=== PATIENT | male | born 1985 | race Two or more races ===

== ENCOUNTER 2022-05-05 16:34 | Emergency (ER) | payer BC, SELFPAY ==
--- NOTE | ~2022-05-05 | XR_ITS ---
EXAMINATION: XR CHEST CLINICAL INFORMATION: Chest pain. COMPARISON: Chest radiographs dated 09/22/2014. TECHNIQUE: Frontal view of the chest was obtained. FINDINGS: No significant abnormality is noted involving the heart, lungs, mediastinum, bony thorax or soft tissues. XR/XR chest 1V IMPRESSION: No acute cardiopulmonary process.
--- NOTE | 2022-05-05 16:35 | ECG_ITS ---
Test Reason : CHEST PAIN Blood Pressure : / mmHG Vent. Rate : 067 BPM Atrial Rate : 067 BPM P-R Int : 122 ms QRS Dur : 084 ms QT Int : 364 ms P-R-T Axes : 051 061 015 degrees QTc Int : 384 ms Normal sinus rhythm with sinus arrhythmia Normal ECG No previous ECGs available Referred By: Sarahy Cerna Electronically Signed By:Reji Brown
[2022-05-05 16:44] VITALS: BP 112/69; PULSE 74; RESP 18; TEMP 36.8; O2SAT 98; BMI 29.0
--- NOTE | 2022-05-05 16:46 | ED.CHESTPAIN ---
HPI - Chest Pain General Chief Complaint: Chest Pain <SANDEE Rahman Last Filed: 05/05/22 17:17> Stated Complaint: chest pain/ sob <SANDEE Rahman Last Filed: 05/05/22 17:17> Time Seen by Provider: 05/05/22 19:58 <SANDEE Rahman Last Filed: 05/05/22 17:17> Source: patient <SANDEE Bradley Last Filed: 05/05/22 21:58> Mode of arrival: ambulatory <SANDEE Bradley Last Filed: 05/05/22 21:58> Limitations: no limitations <SANDEE Bradley Last Filed: 05/05/22 21:58> History of Present Illness HPI narrative: This is a 37-year-old male presenting to the emergency department with discomfort underneath his left shoulder blade that radiates to the left anterior chest, he tells me he is feeling a tightness in his chest, he reports that the pain is constant, worse with deep breathing. Slight associated shortness of breath. No significant personal or family cardiac history. No history of PE, DVT, hypercoagulable disorders, hormone replacement therapy or long travel. Patient denies fevers, chills, nausea, vomiting, abdominal pain, headache, vision changes, dizziness, weakness, lower extremity swelling or pain. <SANDEE Bradley Last Filed: 05/05/22 21:58> Related Data Home Medications: Previous Rx's Medication Instructions Recorded ketorolac 10 mg tablet 10 mg PO TID PRN pain 5 days #15 05/05/22 tabs <SANDEE Rahman Last Filed: 05/05/22 17:17> Allergies/Adverse Reactions: Allergies Allergy/AdvReac Type Severity Reaction Status Date / Time No Known Allergies Allergy Unverified 11/09/19 15:34 <SANDEE Rahman Last Filed: 05/05/22 17:17> Review of Systems Review of Systems: Constitutional : No Weight loss, No Fever, No Chills, No Fatigue, No Malaise ENT/Mouth : No sore throat, No Rhinorrhea Eyes: No Eye Pain, No Swelling, No Redness Cardiovascular : + Chest Pain, + SOB, No Dyspnea on Exertion, No Orthopnea, No Edema, No Palpitations Respiratory : No Cough, No Sputum, No Wheezing Gastrointestinal : No Nausea, No Vomiting, No Diarrhea, No Constipation, No abdominal Pain, No Hematochezia, No Melena Genitourinary : No Dysuria, No Urinary Frequency, No Hematuria, Musculoskeletal : No joint pain, No Myalgias, No Joint Swelling Skin : No Skin Lesions, No rash Neuro : No Weakness, No Numbness, No Dizziness, No Headache Psych : No Anxiety/Panic, No Depression All other systems reviewed and are negative <SANDEE Bradley - Last Filed: 05/05/22 21:58> Yes all other systems are reviewed and are negative <SANDEE Bradley - Last Filed: 05/05/22 21:58> [facility] Past Medical History Attestation statement: The following information was validated with the patient. <SANDEE Bradley - Last Filed: 05/05/22 21:58> Source: old records reviewed and nursing notes reviewed <SANDEE Bradley - Last Filed: 05/05/22 21:58> Social History Social History: Social History Advance Directives: No Advance Directives Information Provided: Yes <SANDEE Rahman - Last Filed: 05/05/22 17:17> Physical Exam Vital Signs: Vital Signs: Last Vital Signs Temp 98.2 F 05/05/22 16:44 Pulse 74 05/05/22 16:44 Resp 18 05/05/22 16:44 BP 112/69 05/05/22 16:44 Pulse Ox 98 05/05/22 16:44 O2 Del Method 05/05/22 16:44 BMI result Body Mass Index 29.0 <SANDEE Rahman - Last Filed: 05/05/22 17:17> Vital Signs: Last Vital Signs Temp 98.2 F 05/05/22 16:44 Pulse 74 05/05/22 16:44 Resp 18 05/05/22 16:44 BP 112/69 05/05/22 16:44 Pulse Ox 98 05/05/22 16:44 O2 Del Method 05/05/22 16:44 BMI result Body Mass Index 29.0 vss <SANDEE Bradley - Last Filed: 05/05/22 21:58> Appearance: Alert.? Oriented X3.? No acute distress.? Head: Normocephalic, atraumatic, no step-offs or deformities Eyes: Pupils equal, round and reactive to light.? CVS: Normal heart rate and rhythm.? Pulses normal.? Respiratory: No respiratory distress.? Breath sounds normal.? Abdomen: Soft and nontender.? Skin: Skin warm and dry.? Normal skin color.? Normal skin turgor.? Extremities: No lower extremity edema.? No calf ttp, negative Radha bilaterally. 5/5 strength to bilateral upper and lower extremities Back: No midline tenderness, no C-spine tenderness, full range of motion, no CVA tenderness bilaterally Neuro: Oriented X 3.? No motor deficit.? No sensory deficit. CN 2-12 intact <SANDEE Bradley Last Filed: 05/05/22 21:58> Course Course Course Narrative: RME--37yo M w/no sig PMHx presenting to the ED complaining of chest pain worse with deep breathing and movement since 06:00. Reports associated SOB. Denies pedal edema, cigarette smoking, history of clots. Did recently travel to [place] 3 weeks ago. EKG, labs, CXR, COVID/flu ordered <SANDEE Rahman Last Filed: 05/05/22 17:17> Reevaluation(s) Reevaluation #1: CBC with no acute findings. Chemistry with no electrolyte abnormalities requiring intervention. Troponin negative, EKG nonischemic, heart score of 0, unlikely ACS. BNP within normal limits. Unlikely CHF. Chest x-ray unremarkable, no signs of pneumonia or CHF. D-dimer negative patient without significant risk factors for PE therefore low suspicion for PE. This is likely noncardiac related chest pain. Or viral illness. Will give Toradol for pain and repeat 1 more cardiac enzyme. <SANDEE Bradley Last Filed: 05/05/22 21:58> Time: 20:12 <SANDEE Bradley - Last Filed: 05/05/22 21:58> Reevaluation #2: Upon re-evaluation of patient patient tells me he feels better after shot of Toradol. Tolerated it well. Second cardiac enzyme negative. I do not suspect ACS, PE or any cardiac etiologies on this patient. Likely musculoskeletal in nature viral. Educated patient on diagnosis and treatment plan, answered all question, patient verbalizes understanding. At this time patient will be discharged home, advised to return with new or worsening symptoms. Educated on worrisome signs and symptoms and when to return. At this time I feel comfortable discharge home. <SANDEE Bradley - Last Filed: 05/05/22 21:58> Time: 21:57 <SANDEE Bradley - Last Filed: 05/05/22 21:58> Medications Administered Discontinued Medications Generic Name Dose Route Start Last Admin Trade Name Freq PRN Reason Stop Dose Admin Ketorolac Tromethamine 30 mg 05/05/22 20:07 05/05/22 21:21 Ketorolac Tromethamine 30 Mg/Ml Vial IM 05/05/22 20:08 30 mg ONCE ONE Administration <SANDEE Rahman - Last Filed: 05/05/22 17:17> Medications Administered Discontinued Medications Generic Name Dose Route Start Last Admin Trade Name Freq PRN Reason Stop Dose Admin Ketorolac Tromethamine 30 mg 05/05/22 20:07 05/05/22 21:21 Ketorolac Tromethamine 30 Mg/Ml Vial IM 05/05/22 20:08 30 mg ONCE ONE Administration <SANDEE Bradley - Last Filed: 05/05/22 21:58> Medical Decision Making Medical Decision Making MDM Narrative: 2008 37-year-old male presents with left anterior chest pain, originates from the left shoulder blade however wraps around. Constant tightness since 06:00 today. With slight associated shortness of breath. Physical exam benign. Concerns for noncardiac related chest pain, versus anxiety. Unlikely myocarditis, endocarditis, ACS, PE, CHF. Patient PERC negative. Will rule out viral illnesses Plan at this time basic labs, EKG, viral testing, x-ray <SANDEE Bradley - Last Filed: 05/05/22 21:58> Differential Diagnosis Differential Diagnoses: The differential diagnosis associated with the presentation includes <SANDEE Bradley Last Filed: 05/05/22 21:58> Concerns for noncardiac related chest pain, versus anxiety. Unlikely myocarditis, endocarditis, ACS, PE, CHF. Patient PERC negative. Will rule out viral illnesses <SANDEE Bradley - Last Filed: 05/05/22 21:58> Admission/Observation Consideration of admission/observation: Escalation of care including admission/observation considered <SANDEE Bradley - Last Filed: 05/05/22 21:58> Unlikely <SANDEE Bradley - Last Filed: 05/05/22 21:58> Lab Data MDM Lab Attestation statement: I reviewed the patient's lab results. <SANDEE Bradley - Last Filed: 05/05/22 21:58> Result Diagrams: 05/05/22 16:57 05/05/22 16:57 <SANDEE Rahman - Last Filed: 05/05/22 17:17> Labs: Lab Results 05/05/22 05/05/22 05/05/22 Range/Units 16:57 16:57 16:57 WBC 8.1 (4.8-10.8) X10*3/uL RBC 4.70 (4.60-5.80) X10*6/uL Hgb 14.2 (14.0-18.0) g/dl Hct 40.9 L (42.0-52.0) % MCV 87.0 (80.0-98.0) fL MCH 30.2 (27.0-33.0) pg MCHC 34.7 (31.0-36.0) g/dl RDW 12.8 (11.0-16.0) % Plt Count 239 (160-400) X10*3/uL MPV 9.1 L (9.4-12.4) fL Immature Gran % (Auto) 0.2 (0.0-0.4) % Neut % (Auto) 51.4 (45-73) % Lymph % (Auto) 38.6 (20-40) % [place] % (Auto) 6.6 (2-11) % Eos % (Auto) 2.0 (0-4) % Baso % (Auto) 1.2 (0-2) % Lymph # (Auto) 3.1 (1.2-4.9) X10*3/uL [place] # (Auto) 0.5 (0.1-1.2) X10*3/uL Eos # (Auto) 0.2 (0.0-0.4) X10*3/uL Baso # (Auto) 0.1 (0.0-0.2) X10*3/uL Abs Immat Gran (auto) 0.02 (0.00-0.03) X10*3/uL Absolute Neuts (auto) 4.2 (2.0-8.3) x10*3/uL Absolute Nucleated RBC 0.000 (0.0-0.012) X10*3/uL Nucleated RBC % (auto) 0.0 (0.0-0.2) /100WBC D-Dimer High Sensitivty < 150 NG/ML Sodium 142 (135-145) mmol/L Potassium 4.5 (3.3-5.1) mmol/L Chloride 105 (96-108) mmol/L Carbon Dioxide 29 (22-29) mmol/L Anion Gap 13 (12-20) BUN 14 (9-16) mg/dL Creatinine 1.17 (0.5-1.4) mg/dL Estim Creat Clear Calc 89.5 Estimated GFR > 60 Random Glucose 92 (60-115) mg/dL Calcium 9.1 (8.4-10.2) mg/dL Total Bilirubin 0.4 (0.0-1.0) mg/dL Direct Bilirubin < 0.2 (0.0-0.5) mg/dL AST 19 (5-37) U/L ALT 27 (0-40) U/L Alkaline Phosphatase 68 (39-117) U/L Troponin I High Sens (<3.5-35.0) ng/L B-Natriuretic Peptide (<100) pg/mL Total Protein 6.8 (6.5-8.0) g/dL Albumin 4.2 (3.5-5.0) g/dL COVID-19 (RAS) (Negative) COVID-19 Clin Com Influenza Type A (TONY) (Negative) Influenza Type B (TONY) (Negative) Influenza A & B Note 05/05/22 05/05/22 05/05/22 Range/Units 16:57 16:57 20:22 WBC (4.8-10.8) X10*3/uL RBC (4.60-5.80) X10*6/uL Hgb (14.0-18.0) g/dl Hct (42.0-52.0) % MCV (80.0-98.0) fL MCH (27.0-33.0) pg MCHC (31.0-36.0) g/dl RDW (11.0-16.0) % Plt Count (160-400) X10*3/uL MPV (9.4-12.4) fL Immature Gran % (Auto) (0.0-0.4) % Neut % (Auto) (45-73) % Lymph % (Auto) (20-40) % [place] % (Auto) (2-11) % Eos % (Auto) (0-4) % Baso % (Auto) (0-2) % Lymph # (Auto) (1.2-4.9) X10*3/uL [place] # (Auto) (0.1-1.2) X10*3/uL Eos # (Auto) (0.0-0.4) X10*3/uL Baso # (Auto) (0.0-0.2) X10*3/uL Abs Immat Gran (auto) (0.00-0.03) X10*3/uL Absolute Neuts (auto) (2.0-8.3) x10*3/uL Absolute Nucleated RBC (0.0-0.012) X10*3/uL Nucleated RBC % (auto) (0.0-0.2) /100WBC D-Dimer High Sensitivty NG/ML Sodium (135-145) mmol/L Potassium (3.3-5.1) mmol/L Chloride (96-108) mmol/L Carbon Dioxide (22-29) mmol/L Anion Gap (12-20) BUN (9-16) mg/dL Creatinine (0.5-1.4) mg/dL Estim Creat Clear Calc Estimated GFR Random Glucose (60-115) mg/dL Calcium (8.4-10.2) mg/dL Total Bilirubin (0.0-1.0) mg/dL Direct Bilirubin (0.0-0.5) mg/dL AST (5-37) U/L ALT (0-40) U/L Alkaline Phosphatase (39-117) U/L Troponin I High Sens < 3.5 (<3.5-35.0) ng/L B-Natriuretic Peptide < 10 (<100) pg/mL Total Protein (6.5-8.0) g/dL Albumin (3.5-5.0) g/dL COVID-19 (RAS) (Negative) COVID-19 Clin Com Influenza Type A (TONY) Negative (Negative) Influenza Type B (TONY) Negative (Negative) Influenza A & B Note See Note 05/05/22 05/05/22 Range/Units 20:22 20:22 WBC (4.8-10.8) X10*3/uL RBC (4.60-5.80) X10*6/uL Hgb (14.0-18.0) g/dl Hct (42.0-52.0) % MCV (80.0-98.0) fL MCH (27.0-33.0) pg MCHC (31.0-36.0) g/dl RDW (11.0-16.0) % Plt Count (160-400) X10*3/uL MPV (9.4-12.4) fL Immature Gran % (Auto) (0.0-0.4) % Neut % (Auto) (45-73) % Lymph % (Auto) (20-40) % [place] % (Auto) (2-11) % Eos % (Auto) (0-4) % Baso % (Auto) (0-2) % Lymph # (Auto) (1.2-4.9) X10*3/uL [place] # (Auto) (0.1-1.2) X10*3/uL Eos # (Auto) (0.0-0.4) X10*3/uL Baso # (Auto) (0.0-0.2) X10*3/uL Abs Immat Gran (auto) (0.00-0.03) X10*3/uL Absolute Neuts (auto) (2.0-8.3) x10*3/uL Absolute Nucleated RBC (0.0-0.012) X10*3/uL Nucleated RBC % (auto) (0.0-0.2) /100WBC D-Dimer High Sensitivty NG/ML Sodium (135-145) mmol/L Potassium (3.3-5.1) mmol/L Chloride (96-108) mmol/L Carbon Dioxide (22-29) mmol/L Anion Gap (12-20) BUN (9-16) mg/dL Creatinine (0.5-1.4) mg/dL Estim Creat Clear Calc Estimated GFR Random Glucose (60-115) mg/dL Calcium (8.4-10.2) mg/dL Total Bilirubin (0.0-1.0) mg/dL Direct Bilirubin (0.0-0.5) mg/dL AST (5-37) U/L ALT (0-40) U/L Alkaline Phosphatase (39-117) U/L Troponin I High Sens < 3.5 (<3.5-35.0) ng/L B-Natriuretic Peptide (<100) pg/mL Total Protein (6.5-8.0) g/dL Albumin (3.5-5.0) g/dL COVID-19 (RAS) Negative (Negative) COVID-19 Clin Com See Note Influenza Type A (TONY) (Negative) Influenza Type B (TONY) (Negative) Influenza A & B Note <SANDEE Rahman - Last Filed: 05/05/22 17:17> Lab Results 05/05/22 05/05/22 05/05/22 Range/Units 16:57 16:57 16:57 WBC 8.1 (4.8-10.8) X10*3/uL RBC 4.70 (4.60-5.80) X10*6/uL Hgb 14.2 (14.0-18.0) g/dl Hct 40.9 L (42.0-52.0) % MCV 87.0 (80.0-98.0) fL MCH 30.2 (27.0-33.0) pg MCHC 34.7 (31.0-36.0) g/dl RDW 12.8 (11.0-16.0) % Plt Count 239 (160-400) X10*3/uL MPV 9.1 L (9.4-12.4) fL Immature Gran % (Auto) 0.2 (0.0-0.4) % Neut % (Auto) 51.4 (45-73) % Lymph % (Auto) 38.6 (20-40) % [place] % (Auto) 6.6 (2-11) % Eos % (Auto) 2.0 (0-4) % Baso % (Auto) 1.2 (0-2) % Lymph # (Auto) 3.1 (1.2-4.9) X10*3/uL [place] # (Auto) 0.5 (0.1-1.2) X10*3/uL Eos # (Auto) 0.2 (0.0-0.4) X10*3/uL Baso # (Auto) 0.1 (0.0-0.2) X10*3/uL Abs Immat Gran (auto) 0.02 (0.00-0.03) X10*3/uL Absolute Neuts (auto) 4.2 (2.0-8.3) x10*3/uL Absolute Nucleated RBC 0.000 (0.0-0.012) X10*3/uL Nucleated RBC % (auto) 0.0 (0.0-0.2) /100WBC D-Dimer High Sensitivty < 150 NG/ML Sodium 142 (135-145) mmol/L Potassium 4.5 (3.3-5.1) mmol/L Chloride 105 (96-108) mmol/L Carbon Dioxide 29 (22-29) mmol/L Anion Gap 13 (12-20) BUN 14 (9-16) mg/dL Creatinine 1.17 (0.5-1.4) mg/dL Estim Creat Clear Calc 89.5 Estimated GFR > 60 Random Glucose 92 (60-115) mg/dL Calcium 9.1 (8.4-10.2) mg/dL Total Bilirubin 0.4 (0.0-1.0) mg/dL Direct Bilirubin < 0.2 (0.0-0.5) mg/dL AST 19 (5-37) U/L ALT 27 (0-40) U/L Alkaline Phosphatase 68 (39-117) U/L Troponin I High Sens (<3.5-35.0) ng/L B-Natriuretic Peptide (<100) pg/mL Total Protein 6.8 (6.5-8.0) g/dL Albumin 4.2 (3.5-5.0) g/dL COVID-19 (RAS) (Negative) COVID-19 Clin Com Influenza Type A (TONY) (Negative) Influenza Type B (TONY) (Negative) Influenza A & B Note 05/05/22 05/05/22 05/05/22 Range/Units 16:57 16:57 20:22 WBC (4.8-10.8) X10*3/uL RBC (4.60-5.80) X10*6/uL Hgb (14.0-18.0) g/dl Hct (42.0-52.0) % MCV (80.0-98.0) fL MCH (27.0-33.0) pg MCHC (31.0-36.0) g/dl RDW (11.0-16.0) % Plt Count (160-400) X10*3/uL MPV (9.4-12.4) fL Immature Gran % (Auto) (0.0-0.4) % Neut % (Auto) (45-73) % Lymph % (Auto) (20-40) % [place] % (Auto) (2-11) % Eos % (Auto) (0-4) % Baso % (Auto) (0-2) % Lymph # (Auto) (1.2-4.9) X10*3/uL [place] # (Auto) (0.1-1.2) X10*3/uL Eos # (Auto) (0.0-0.4) X10*3/uL Baso # (Auto) (0.0-0.2) X10*3/uL Abs Immat Gran (auto) (0.00-0.03) X10*3/uL Absolute Neuts (auto) (2.0-8.3) x10*3/uL Absolute Nucleated RBC (0.0-0.012) X10*3/uL Nucleated RBC % (auto) (0.0-0.2) /100WBC D-Dimer High Sensitivty NG/ML Sodium (135-145) mmol/L Potassium (3.3-5.1) mmol/L Chloride (96-108) mmol/L Carbon Dioxide (22-29) mmol/L Anion Gap (12-20) BUN (9-16) mg/dL Creatinine (0.5-1.4) mg/dL Estim Creat Clear Calc Estimated GFR Random Glucose (60-115) mg/dL Calcium (8.4-10.2) mg/dL Total Bilirubin (0.0-1.0) mg/dL Direct Bilirubin (0.0-0.5) mg/dL AST (5-37) U/L ALT (0-40) U/L Alkaline Phosphatase (39-117) U/L Troponin I High Sens < 3.5 (<3.5-35.0) ng/L B-Natriuretic Peptide < 10 (<100) pg/mL Total Protein (6.5-8.0) g/dL Albumin (3.5-5.0) g/dL COVID-19 (RAS) (Negative) COVID-19 Clin Com Influenza Type A (TONY) Negative (Negative) Influenza Type B (TONY) Negative (Negative) Influenza A & B Note See Note 05/05/22 05/05/22 Range/Units 20:22 20:22 WBC (4.8-10.8) X10*3/uL RBC (4.60-5.80) X10*6/uL Hgb (14.0-18.0) g/dl Hct (42.0-52.0) % MCV (80.0-98.0) fL MCH (27.0-33.0) pg MCHC (31.0-36.0) g/dl RDW (11.0-16.0) % Plt Count (160-400) X10*3/uL MPV (9.4-12.4) fL Immature Gran % (Auto) (0.0-0.4) % Neut % (Auto) (45-73) % Lymph % (Auto) (20-40) % [place] % (Auto) (2-11) % Eos % (Auto) (0-4) % Baso % (Auto) (0-2) % Lymph # (Auto) (1.2-4.9) X10*3/uL [place] # (Auto) (0.1-1.2) X10*3/uL Eos # (Auto) (0.0-0.4) X10*3/uL Baso # (Auto) (0.0-0.2) X10*3/uL Abs Immat Gran (auto) (0.00-0.03) X10*3/uL Absolute Neuts (auto) (2.0-8.3) x10*3/uL Absolute Nucleated RBC (0.0-0.012) X10*3/uL Nucleated RBC % (auto) (0.0-0.2) /100WBC D-Dimer High Sensitivty NG/ML Sodium (135-145) mmol/L Potassium (3.3-5.1) mmol/L Chloride (96-108) mmol/L Carbon Dioxide (22-29) mmol/L Anion Gap (12-20) BUN (9-16) mg/dL Creatinine (0.5-1.4) mg/dL Estim Creat Clear Calc Estimated GFR Random Glucose (60-115) mg/dL Calcium (8.4-10.2) mg/dL Total Bilirubin (0.0-1.0) mg/dL Direct Bilirubin (0.0-0.5) mg/dL AST (5-37) U/L ALT (0-40) U/L Alkaline Phosphatase (39-117) U/L Troponin I High Sens < 3.5 (<3.5-35.0) ng/L B-Natriuretic Peptide (<100) pg/mL Total Protein (6.5-8.0) g/dL Albumin (3.5-5.0) g/dL COVID-19 (RAS) Negative (Negative) COVID-19 Clin Com See Note Influenza Type A (TONY) (Negative) Influenza Type B (TONY) (Negative) Influenza A & B Note <SANDEE Bradley - Last Filed: 05/05/22 21:58> Independent Interpretation I performed an independent interpretation of an: EKG (Ventricular rate of 67, IN normal, QRS normal, QT/QTC normal. EKG with normal sinus rhythm with sinus arrhythmia. No ST elevations or inversions concerning for ischemia) and Plain X-Ray (XR/XR chest 1V IMPRESSION: No acute cardiopulmonary process.) <SANDEE Bradley - Last Filed: 05/05/22 21:58> Radiology Impression Discussion of test interpretation with radiology: I have reviewed the radiologist's reading. <SANDEE Bradley - Last Filed: 05/05/22 21:58> Core Measures AMI core measures followed: Yes <SANDEE Bradley Last Filed: 05/05/22 21:58> Measure exclusions: not indicated <SANDEE Bradley - Last Filed: 05/05/22 21:58> Critical Care Time Critical Care Time Critical Care Time: No <SANDEE Bradley Last Filed: 05/05/22 21:58> Discharge Plan Discharge Clinical Impression: Chest pain <SANDEE Rahman Last Filed: 05/05/22 17:17> Patient Disposition: Home, Self-Care <SANDEE Rahman Last Filed: 05/05/22 17:17> Instructions: Chest Pain (DC) <SANDEE Rahman Last Filed: 05/05/22 17:17> Additional Instructions: Take your medications as prescribed. If you were prescribed antibiotics today, it is important that you take your medication to their entirety, do not skip any doses, do not finish them early. Follow-up with your primary care provider this week. Follow up with cardiology if pain persists. Return to the emergency department with new or worsening symptoms. Such as fevers, chills, chest pain, shortness of breath, nausea, vomiting, dizziness, headache, vision changes, lethargy In case of emergency call 911 Toradol has been sent to your pharmacy, you tolerated this well in the department. Please take this as prescribed do not take this with ibuprofen, or other NSAIDs, do not mix this with alcohol. Side effects of this medication including increased risk for bleeding and possible kidney injury. <SANDEE Rahman Last Filed: 05/05/22 17:17> Prescriptions: New ketorolac 10 mg tablet 10 mg PO TID PRN (Reason: pain) 5 Days Qty: 15 0RF <SANDEE Rahman Last Filed: 05/05/22 17:17> [place]: [facility] [place]] - 1 week Physician,Unknown J [Primary Care Provider] - 2 days <SANDEE Rahman Last Filed: 05/05/22 17:17> Stand Alone Forms: Work/School Release <SANDEE Rahman Last Filed: 05/05/22 17:17>
[2022-05-05 17:14] LABS: MANUAL DIFF FLAG NO
[2022-05-05 17:16] LABS: Basophils Absolute Auto 0.1 X10*3/uL (0.0-0.2); Basophils Percent Auto 1.2 % (0-2); Eosinophils Absolute Auto 0.2 X10*3/uL (0.0-0.4); Hematocrit 40.9 % (42.0-52.0); Hemoglobin 14.2 g/dl (14.0-18.0); Imm Gran Abs Auto 0.02 X10*3/uL (0.00-0.03); Imm Gran Pct Auto 0.2 % (0.0-0.4); Lymphocytes Absolute Auto 3.1 X10*3/uL (1.2-4.9); Lymphocytes Percent Auto 38.6 % (20-40); Mean Corpuscular HGB Conc 34.7 g/dl (31.0-36.0); Mean Corpuscular Hemoglobin 30.2 pg (27.0-33.0); Mean Platelet Volume 9.1 fL (9.4-12.4); Monocytes Absolute Auto 0.5 X10*3/uL (0.1-1.2); Monocytes Percent Auto 6.6 % (2-11); Neutrophils Absolute Auto 4.2 x10*3/uL (2.0-8.3); Neutrophils Percent Auto 51.4 % (45-73); Platelet Count 239 X10*3/uL (160-400); Red Cell Distribution Width 12.8 % (11.0-16.0); White Blood Count 8.1 X10*3/uL (4.8-10.8)
[2022-05-05 17:23] LABS: D Dimer High Sensitivity < 150 NG/ML
[2022-05-05 17:33] LABS: Alanine Aminotransferase 27 U/L (0-40); Albumin Level 4.2 g/dL (3.5-5.0); Alkaline Phosphatase 68 U/L (39-117); Anion Gap 13 (12-20); Aspartate Amino Transferase 19 U/L (5-37); Bilirubin Direct < 0.2 mg/dL (0.0-0.5); Bilirubin Total 0.4 mg/dL (0.0-1.0); Blood Urea Nitrogen 14 mg/dL (9-16); Calcium 9.1 mg/dL (8.4-10.2); Carbon Dioxide 29 mmol/L (22-29); Chloride 105 mmol/L (96-108); Creatinine Clr Calc Pharmacy 89.5; Estimated Glomerular Filt Rate > 60; Glucose Random 92 mg/dL (60-115); Potassium 4.5 mmol/L (3.3-5.1); Sodium 142 mmol/L (135-145); Total Protein 6.8 g/dL (6.5-8.0)
[2022-05-05 17:35] LABS: B Type Natriuretic Peptide < 10 pg/mL (<100)
[2022-05-05 17:39] LABS: Troponin-I High Sensitivity < 3.5 ng/L (<3.5-35.0)
[2022-05-05 20:41] LABS: COVID-19 Test Negative (Negative); IDNOW Serial# 16C4AD1C
[2022-05-05 20:43] LABS: IDNOW Serial# BCCEAD1C; Influenza A Negative (Negative); Influenza B2 Negative (Negative)
[2022-05-05 20:47] LABS: Troponin-I High Sensitivity < 3.5 ng/L (<3.5-35.0)
[2022-05-05] MEDS: Ketorolac Tromethamine 30 MG/ML VIAL IM (21:21)
== END 2022-05-05 22:13 | disposition home or self-care (01) ==
PROVIDERS: Physician Assistant; Emergency Provider Internal Medicine
DX: R07.9 Chest pain, unspecified (principal); R06.02 Shortness of breath; Z20.822 Contact with and (suspected) exposure to COVID-19
CPT/HCPCS: 36415; 71045; 80048; 80076; 83880; 84484; 85025; 85379; 87502; 87635; 93005; 96372; 99284; J1885

== ENCOUNTER 2023-11-04 20:30 | Emergency (ER) | payer BC, SELFPAY ==
--- NOTE | ~2023-11-04 | XR_ITS ---
EXAMINATION: XR SHOULDER, RIGHT CLINICAL INFORMATION: Chronic shoulder pain COMPARISON: None available. TECHNIQUE: AP external rotation, Grashey, scapular Y, and axillary views of the right shoulder. FINDINGS: The bones and soft tissues are normal. No fracture. Glenohumeral and acromioclavicular alignment is anatomic with normal joint space. No abnormal soft tissue calcifications. XR/XR shoulder RT min 2V IMPRESSION: Normal right shoulder. Electronically signed by: Tomas Sanchez DO 11/04/2023 11:52 PM EDT
--- NOTE | ~2023-11-04 | XR_ITS ---
EXAMINATION: XR FOREARM, RIGHT CLINICAL INFORMATION: Pain COMPARISON: None available. TECHNIQUE: AP and lateral views of the right forearm were obtained. FINDINGS: The bones and soft tissues are normal. No fracture. Imaged portions of the elbow and wrist are unremarkable. XR/XR forearm RT 2V IMPRESSION: Normal right forearm. Electronically signed by: Destiny Jacobo MD 11/04/2023 11:48 PM EDT RP
[2023-11-04 20:42] VITALS: BP 132/82; PULSE 89; RESP 18; TEMP 38.9; O2SAT 98; BMI 27.8
--- NOTE | 2023-11-04 20:47 | ED.GENADULT ---
HPI - General Adult General Chief complaint: General Medical Stated complaint: chills/sore throat/rt arm falls alseep Source: patient Mode of arrival: ambulatory Limitations: no limitations History of Present Illness HPI narrative: Patient left before completion of treatment by ED provider Related Data Previous Rx's ?Medication ?Instructions ?Recorded ketorolac 10 mg tablet 10 mg PO TID PRN pain 5 days #15 05/05/22 tabs Allergies Allergy/AdvReac Type Severity Reaction Status Date / Time No Known Allergies Allergy Verified 11/04/23 20:44 [facility] Social History Social History Advance Directives: No Advance Directives Information Provided: No Do you have a plan to hurt others: No Plan Physical Exam ED Vital Signs: Vital Signs - 24 hr 11/04/23 20:42 Temperature 102.0 F H Pulse Rate 89 Respiratory Rate 18 Blood Pressure 132/82 Pulse Oximetry 98 Oxygen Delivery Method Room Air BMI result Body Mass Index 27.8 Course Course Course Narrative: RME: DOne by SANDEE Anderson. 38-year-old male presents to ED for fever, sore throat, and chills the past 3 days. Patient states was sick 1st and now he is sick. Patient denies any chest pain or shortness of breath. Secondary complaint is right shoulder pain read the dragging down right arm for almost a year. Patient states sharp stabbing tingling pain going down right arm and pain on range of motion. Physical exam negative for signs of neurovascular compromise of right upper extremity. Negative for signs of DVT, compartment syndrome, arterial occlusion. Oral exam negative for signs of peritonsillar abscess. SARs strep x-ray ordered Medications Administered Discontinued Medications Generic Name Dose Route Start Last Admin Trade Name Freq PRN Reason Stop Dose Admin Acetaminophen 975 mg 11/04/23 20:47 11/04/23 20:52 Acetaminophen 325 Mg Tablet PO 11/04/23 20:48 975 mg ONCE ONE Administration Ibuprofen 400 mg 11/04/23 20:47 11/04/23 20:52 Ibuprofen 400 Mg Tablet PO 11/04/23 20:48 400 mg ONCE ONE Administration Medical Decision Making Lab Data Labs: Lab Results 11/04/23 Range/Units 20:56 Influenza Type A (PCR) NEGATIVE (Negative) Influenza Type B (PCR) NEGATIVE (Negative) RSV RNA Qual (PCR) NEGATIVE (Negative) SARS-CoV-2 RNA (RT-PCR) NEGATIVE (Negative) S. pyogenes GrpA TONY Negative (Negative) Discharge Plan Discharge Clinical Impression: Acute viral syndrome Patient Disposition: Left W/O Completing Treatment Prescriptions: No Action ketorolac 10 mg tablet 10 mg PO TID PRN (Reason: pain) 5 Days Qty: 15 0RF Discharge Date/Time: 11/04/23 23:50
[2023-11-04] MEDS: Ibuprofen 400 MG TABLET PO (20:52)
[2023-11-04] MEDS: Acetaminophen 325 MG TABLET 975 MG PO (20:52)
[2023-11-04 21:22] LABS: IDNOW Serial# 6674DD1D; Strep A Nucleic Acid Negative (Negative)
[2023-11-04 21:52] LABS: Influenza A PCR NEGATIVE (Negative); Influenza B PCR NEGATIVE (Negative); Resp Syncy Virus RNA Qual PCR NEGATIVE (Negative); SARS COV2 PCR INHOUSE NEGATIVE (Negative)
== END 2023-11-04 23:50 | disposition left against medical advice (07) ==
PROVIDERS: Physician Assistant; Emergency Provider Emergency Medicine
DX: B34.9 Viral infection, unspecified (principal); J02.8 Acute pharyngitis due to other specified organisms; M79.601 Pain in right arm; Z03.818 Encounter for observation for suspected exposure to other biological agents ruled out
CPT/HCPCS: 0241U; 73030; 73090; 87651; 99282; 99283

== ENCOUNTER 2024-04-25 15:08 | Outpatient (AMB) | payer BC, SELFPAY ==
[2024-04-25 15:18] VITALS: BP 110/70; PULSE 86; TEMP 36.3; O2SAT 98; BMI 28.2
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
== END 2024-04-25 16:02 | disposition home or self-care (01) ==
PROVIDERS: Visit Provider Physician Assistant
DX: Z23 Encounter for immunization (principal)

== ENCOUNTER → 2024-04-25 15:08 | Outpatient (BNVA) | payer BC, SELFPAY | PROVIDERS: Visit Provider Physician Assistant | DX: M79.671 Pain in right foot (principal); M79.672 Pain in left foot; R07.1 Chest pain on breathing; K21.9 Gastro-esophageal reflux disease without esophagitis; M54.6 Pain in thoracic spine; M54.2 Cervicalgia; M77.8 Other enthesopathies, not elsewhere classified; Z28.21 Immunization not carried out because of patient refusal | CPT/HCPCS: 90471; 96127 ==

== ENCOUNTER 2024-04-27 20:09 | Emergency (ER) | payer BC, SELFPAY ==
--- NOTE | ~2024-04-27 | CT_ITS ---
CLINICAL HISTORY: head trauma CT head without contrast Comparison: None Findings: No acute intracranial hemorrhage. No midline shift or hydrocephalus. Vee matter-white matter differentiation is adequate. Posterior fossa arachnoid cyst measures 9 mm. Soft tissue swelling and/or scar over the frontal convexities. Acute comminuted nasal bone fractures with anterior blunting. Mucosal thickening of the imaged paranasal sinuses. Trace left mastoid effusion. Soft tissue swelling over the frontal convexities IMPRESSION: 1. No acute intracranial abnormality by CT. 2. Acute comminuted anterior bilateral nasal bone fractures. This document has been electronically signed by: Woodrow Moise MD on 04/27/2024 21:22:01
--- NOTE | ~2024-04-27 | CT_ITS ---
CLINICAL HISTORY: laceration, TTP CT maxillofacial without contrast Comparison: Head CT from same day. Findings: Acute comminuted bilateral nasal bone fractures with anterior blunting. Nasal septum deviates to the left. Mucosal thickening and retention cysts of the paranasal sinuses including 2 cm in the left maxillary sinus, with likely odontogenic origin. Trace left mastoid effusion. Soft tissue swelling including over the frontal convexities with small dermal calcifications. Minimal periorbital soft tissue swelling is preseptal. No displaced mandible fracture. No dislocation of the temporomandibular joints. Mild reversal of the imaged cervical lordosis. IMPRESSION: Acute comminuted anterior bilateral nasal bone fractures. This document has been electronically signed by: Woodrow Moise MD on 04/27/2024 21:23:25
[2024-04-27 20:15] VITALS: BP 110/76; PULSE 110; RESP 20; TEMP 37; O2SAT 98; BMI 22.8
--- NOTE | 2024-04-27 20:19 | ED_ITS ---
HPI - Skin/Abscess/Foreign Bdy General Chief complaint: Wound/Laceration Stated complaint: nose laceration Time Seen by Provider: 04/27/24 23:17 Source: patient Mode of arrival: ambulatory Limitations: no limitations History of Present Illness ED Provider: BAHMAN HANLEY narrative: 39 yo male with PMH of GERD not on thinners he is unclear on Tdap but refuses. He comes in with c/o taking an elbow to bridge of nose causing cut while playing pepper picker basketball. He had no LOC. His nose did not bleed. He has mild headache. MD complaint: laceration Onset (ago): minute(s) ([employer]IVIL [employer]INE[employer]) Tetanus up to date: unsure Location: face (nose) Severity: mild Quality: aching Pain Consistency: constant Relieving factors: none Exacerbating factors: none Context: other (elbow to the face) Associated symptoms: denies other symptoms Treatments prior to arrival: none Related Data Previous Rx's ?Medication ?Instructions ?Recorded omeprazole 10 mg capsule,delayed 10 mg PO DAILY 30 days #30 caps 04/26/24 release amoxicillin 500 mg capsule 500 mg PO BID 7 days #14 caps 04/27/24 Allergies Allergy/AdvReac Type Severity Reaction Status Date / Time No Known Allergies Allergy Verified 04/27/24 20:19 Review of Systems Review of Systems: Constitutional : No Fever, No Chills, No Fatigue ENT/Mouth : No sore throat, No Rhinorrhea Eyes: No Eye Pain, No Swelling, No Redness Cardiovascular : No Chest Pain, No SOB, No Dyspnea on Exertion Respiratory : No Cough, No Sputum Gastrointestinal : No Nausea, No Vomiting, No Diarrhea, No abdominal Pain Genitourinary : No Dysuria, No Urinary Frequency, No Hematuria, Musculoskeletal : No joint pain, No Myalgias, No Joint Swelling Skin : No Skin Lesions, No rash, pos skin laceration Neuro : No Weakness, No Numbness, No Dizziness, positive Headache All other systems reviewed and are negative [facility] Past Medical History Attestation statement: The following information was validated with the patient. Source: old records reviewed Medical History (Updated 04/28/24 @ 00:00 by Faby Koch DO) GERD (gastroesophageal reflux disease) Family History Family History (Updated 04/25/24 @ 15:29 by Heber Crockett PA-C) Mother DMII (diabetes mellitus, type 2) Father Liver cirrhosis Social History Social History Alcohol intake: current Alcohol intake frequency: holidays/special occasions on ly Substance Use Type: Marijuana Current occupational status: employed Current occupation: [employer] Physical Exam Vital Signs: Vital Signs: Last Vital Signs Temp 98.6 F 04/27/24 20:15 Pulse 110 H 04/27/24 20:15 Resp 20 04/27/24 20:15 BP 110/76 04/27/24 20:15 Pulse Ox 98 04/27/24 20:15 O2 Del Method Room Air 04/27/24 20:15 BMI result Body Mass Index 22.8 Appearance: Alert. Oriented X3. No acute distress. Eyes: Pupils equal, round and reactive to light. ENT: Pharynx normal. no nasal septal hematoma - nasal bridge 1.5cm linear and down to subq Neck: Normal inspection. Neck supple. CVS: Normal heart rate and rhythm. Pulses normal. Respiratory: No respiratory distress. Breath sounds normal. Abdomen: atraumatic. Skin: Skin warm and dry. Normal skin color. Extremities: No lower extremity edema. Neuro: Oriented X 3. No motor deficit. No sensory deficit. CN2-12 intact Course Course Course Narrative: This is an RME: Additional HPI, ROS, PE not included below will be deferred to primary provider. RME assessment and note performed by: Stephanie Morse PA-C This is a 39-year-old male who presents emergency department for evaluation of laceration to the bridge of his nose. Patient was playing a basketball game when a other player elbowed him in the nose. He did not black out however states that he was ?dazed? for several seconds. Done on anticoagulation. Two cm partial-thickness laceration noted to bridge of nose. Plan: CT head, facial bones, further ER evaluation needed. Medical Decision Making Medical Decision Making MDM Narrative: 39 yo male with PMH of GERD here with c/o taking elbow to the face playing basketball - he is not on thinners no LOC and has isolated laceration to nasal bridge. Will obtain trauma images and suture. Start on abx given fracture and laceration. He refuses Tdap. Differential Diagnosis Differential Diagnoses: The differential diagnosis associated with the presentation includes nasal bone fracture, laceration Independent Interpretation I performed an independent interpretation of an: CT Scan (+ nasal bone fracture) Radiology Impression Discussion of test interpretation with radiology: I have reviewed the radiologist's reading. External Record Review External record reviewed: Outpatient record Prescription Management I considered prescription management with: Antibiotic Procedures Laceration Laceration 1: Site: face Size (cm): 1.5 Description: linear Depth: simple, single layer Local Anesthetic: lidocaine 1% Amount of anesthesia used (mL): 1 Pre-repair: wound explored and irrigated extensively Skin layer closed with: other (prolene) Size (cm): 6-0 Number of sutures: 1 Technique: simple, interrupted Discharge Plan Discharge Clinical Impression: Laceration of face, Fracture of nasal bone Patient Disposition: Home, Self-Care Instructions: Nasal Fracture (ED), Laceration (ED) Additional Instructions: finish antibiotics stitches out in 7 days it is okay to shower return for worsening pain, swelling, fevers, persistent bloody nose or any other concern no nose blowing for 1 week follow up with ENT in 2 weeks ENT [facility] [phone] call to schedule appointment you have an incidental finding of arachnoid cyst on CT scan - your doctor can monitor this avoid any activities that could cause trauma to the face for the next few weeks Prescriptions: New amoxicillin 500 mg capsule 500 mg PO BID 7 Days Qty: 14 0RF No Action omeprazole 10 mg capsule,delayed release(DR/EC) 10 mg PO DAILY 30 Days Qty: 30 3RF Stand Alone Forms: Work/School Release Print Language: Georgian
[2024-04-28] MEDS: Amoxicillin 500 MG CAPSULE PO (00:25)
[2024-04-28] MEDS: Lidocaine HCl 1 % MPF 5 ML VIAL SUBCUT (00:29)
== END 2024-04-28 00:12 | disposition home or self-care (01) ==
PROVIDERS: Emergency Provider Emergency Medicine; PCP Physician Assistant
DX: S01.21XA Laceration without foreign body of nose, initial encounter (principal); S02.2XXA Fracture of nasal bones, initial encounter for closed fracture; R51.9 Headache, unspecified; X50.3XXA Overexertion from repetitive movements, initial encounter; Y93.67 Activity, basketball; Y92.310 Basketball court as the place of occurrence of the external cause; Y99.8 Other external cause status
CPT/HCPCS: 12011; 70450; 70486; 99284; J2003

== ENCOUNTER → 2024-04-27 20:20 | Outpatient (BNV) | payer BC, SELFPAY | PROVIDERS: PCP Physician Assistant; Visit Provider Radiology Neuroradiology | DX: S02.2XXA Fracture of nasal bones, initial encounter for closed fracture (principal); R51.9 Headache, unspecified | CPT/HCPCS: 70450; 70486 ==

== ENCOUNTER 2024-05-01 14:42 | Outpatient (REF) | payer BC, SELFPAY ==
--- NOTE | ~2024-05-01 | XR_ITS ---
EXAMINATION: XR FOOT, RIGHT CLINICAL INFORMATION: M79.671 - Pain in right foot COMPARISON: None available. TECHNIQUE: AP, lateral, and oblique views of the right foot. FINDINGS: No fracture, dislocation, or suspicious bone lesion. Normal bone mineralization. Normal alignment. Joint spaces are preserved. No significant arthropathy. Normal plantar arch. Soft tissues appear normal. XR/XR foot RT 2V IMPRESSION: Normal right foot. Electronically signed by: Bill Rodriguez MD 05/02/2024 01:11 PM EDT
--- NOTE | ~2024-05-01 | XR_ITS ---
EXAMINATION: XR CHEST CLINICAL INFORMATION: R07.9 - Chest pain, unspecified COMPARISON: 05/05/2022. TECHNIQUE: 2 views of the chest were obtained. FINDINGS: The cardiac, hilar, and mediastinal contours are normal. Subtle increased opacity abutting the right heart border, possible subtle pneumonia versus artifact from overlapping structures. Lungs otherwise clear. There is no pneumothorax or pleural effusion. There is no focal osseous or soft tissue abnormality. XR/XR chest 2V IMPRESSION: 1. Subtle increased opacity abutting the right heart border, only seen on the PA projection. This could represent a very subtle pneumonia in the appropriate clinical setting, or conversely be related to artifact from overlying structures. 2. Otherwise, normal chest. Electronically signed by: Bill Rodriguez MD 05/02/2024 12:04 PM EDT
--- NOTE | ~2024-05-01 | XR_ITS ---
EXAMINATION: XR FOOT, LEFT CLINICAL INFORMATION: M79.671 - Pain in right foot COMPARISON: None available. TECHNIQUE: AP, lateral, and oblique views of the left foot. FINDINGS: No fracture, dislocation, or suspicious bone lesion. Normal bone mineralization. Bone island is present within the calcaneus. Normal alignment. Joint spaces are preserved. No significant arthropathy. Normal plantar arch. Soft tissues appear normal. XR/XR foot LT 2V IMPRESSION: Normal left foot. Electronically signed by: Bill Rodriguez MD 05/02/2024 01:12 PM EDT
== END 2024-05-01 14:43 | disposition home or self-care (01) ==
LOC: HO.XRAY 14:42
PROVIDERS: PCP Physician Assistant; Visit Provider Physician Assistant
DX: R07.9 Chest pain, unspecified (principal); M79.671 Pain in right foot; M79.672 Pain in left foot
CPT/HCPCS: 71046; 73620

== ENCOUNTER → 2024-05-01 14:51 | Outpatient (BNV) | payer BC, SELFPAY | PROVIDERS: PCP Physician Assistant; Visit Provider Radiology Diagnostic Radiology | DX: R07.9 Chest pain, unspecified (principal); M79.672 Pain in left foot; M79.671 Pain in right foot | CPT/HCPCS: 71046; 73620 ==

== ENCOUNTER 2024-05-04 11:48 | Outpatient (AMB) | payer BC, SELFPAY ==
[2024-05-04 11:54] VITALS: BP 122/82; PULSE 80; O2SAT 99; BMI 27.3
--- NOTE | 2024-05-04 11:54 | MHC.PC.OV ---
Vital Signs 05/04/24 11:54 Height 5 ft 8 in Weight 179 lb 6 oz BMI 27.3 BP 122/82 Blood Pressure Location Lt brachial Pulse 80 Pulse Source Pulse Oximeter Pulse Oximetry (%) 99 Oxygen Delivery Method Room Air Intake Visit Reasons: [facility] 04/28 nose laceration stich removal Whitewasher Required: No Accompanied by: Self / Same As Patient Allergies No Known Allergies Allergy (Verified 05/04/24 12:10) Medication List - Last Reconciled 05/04/24 by Charley Montilla PA-C amoxicillin 500 mg PO BID 7 days lansoprazole 30 mg PO DAILY 30 days Tobacco use date assessed: 05/04/24 Dental Screening Dental Screen Date: 05/04/24 Did you have a dental visit in the last 12 months?: No Did you have a dental problem in the last 6 months where you did not have access to dental care?: No Was dental information given to patient?: No [facility] Medical History (Updated 05/04/24 @ 12:14 by Charley Montilla PA-C) Nasal bones, closed fracture Visit for suture removal GERD (gastroesophageal reflux disease) Family History Mother DMII (diabetes mellitus, type 2) Father Liver cirrhosis Social History Housing: House Alcohol intake: current Alcohol intake frequency: holidays/special occasions only e-Cigarette/Vaping Use: Never Used Substance Use Type: Marijuana Current occupational status: employed Current occupation: [employer] Cognitive needs: No Hearing needs: No Vision needs: No Questionnaire PHQ-9 Over the last 2 weeks, how often have you been bothered by any of the following problems? 1. Little interest or pleasure in doing things: several days 2. Feeling down, depressed, or hopeless: several days 3. Trouble falling or staying asleep, or sleeping too much: several days 4. Feeling tired or having little energy: not at all 5. Poor appetite or overeating: several days 6. Feeling bad about yourself - or that you are a failure or have let yourself or your family down: not at all 7. Trouble concentrating on things, such as reading the newspaper or watching television: not at all 8. Moving or speaking so slowly that other people could have noticed. Or the opposite - being so fidgety or restless that you have been moving around a lot more than usual: not at all 9. Thoughts that you would be better off or of hurting yourself in some way: not at all Total score: 4 Depression Screening Interpretation: Positive Depression Screening Follow-up: Existing condition Depression Screening Done: Yes 41418 - PHQ-9 Billing: Yes Source: Developed by Drs. Ty Fournier, Petra Díaz, Inocencio Harmon and colleagues, with an educational rebeka from [employer]. Thrive Questionnaire Date Thrive assessed: 05/04/24 I am a: Patient What is your living situation today?: I have a steady place to live Within the past 12 months, did the food you bought not last and you didn't have the money to get more?: Often true Within the past 12 months, did you worry whether your food would run out before you got money to buy more?: Often true Do you have trouble paying for medicines?: No Do you have trouble getting transportation to medical appointments?: No Do you have trouble paying your heating and electricity bill?: Yes Do you have trouble taking care of your child, family member or friend?: No Do you have trouble with day-to-day activities such as bathing, preparing meals, shopping, managing finances, etc.?: No Are you currently unemployed and looking for a job?: No Are you interested in more education?: Yes Please select the resources that you would like help with: Childcare Currently or been in a relationship where the following occur: No concerns reported THRIVE Score: 3 AUDIT C Alcohol Use Questionnaire (AUDIT-C) 1. How often do you have a drink containing alcohol?: 2-4 times a month 2. How many drinks containing alcohol do you have on a typical day when you are drinking?: 3 or 4 3. How often do you have six or more drinks on one occasion?: Less than monthly Total Score: 4 Score Reviewed/Action Taken: No MICHAEL-7 AMB Questionnaire MICHAEL-7 Date MICHAEL - 7 assessed: 05/04/24 Feeling nervous, anxious, or on edge: 1 = Several days Not being able to stop or control worryin = Several days Worrying too much about different things: 1 = Several days Trouble relaxin = Several days Being so restless that it is hard to sit still: 1 = Several days Becoming easily annoyed or irritable: 1 = Several days Feeling afraid as if something awful might happen: 1 = Several days Total MICHAEL-7 score (0-4 normal; 5-9 mild; 10-14 moderate; 15-21 severe): 7 Source: Developed by Drs. Ty Fournier, Petra Díaz, Inocencio Harmon and colleagues, with an educational rebeka from [employer]. MICHAEL-7 Assessment Billing MICHAEL-7 Assessment Tool: MICHAEL-7 Assessment 44206 Physical exam (Primary Care) Vital Signs: Last Vital Signs Pulse 80 05/04/24 11:54 BP 122/82 05/04/24 11:54 Pulse Ox 99 05/04/24 11:54 Oxygen Delivery Method Room Air 05/04/24 11:54 BMI result Body Mass Index 27.3 Tobacco/Smoking Status: Tobacco use Status Tobacco use date assessed 05/04/24 05/04/24 12:04 e-Cigarette/Vaping Use Never Used 05/04/24 12:04 PHQ-9: PHQ-9 Score PHQ-9: Total score 4 05/04/24 12:04 Depression Screening Interpretation: Positive Depression Screening Follow-up: Existing condition Thrive Assessment: Date of Thrive Assessment Date Thrive assessed 05/04/24 05/04/24 12:04 Currently or been in a relationship where the following occur: No concerns reported Coding Level of Care Code Est Pt Level 3 (39770) Procedure Only Diagnoses Visit for suture removal Z48.02 Nasal bones, closed fracture S02.2XXA Additional Codes MICHAEL-7 Assessment Billing - MICHAEL-7 Assessment Tool: MICHAEL-7 Assessment 85703 ([id number]) PHQ-9 - 29195 - PHQ-9 Billing: Yes ([id number]) Assessment & Plan Assessment & Plan (1) Visit for suture removal: Code(s): Z48.02 - Encounter for removal of sutures Category: Medical Plan: patient was seen in the emergency department on 04/27/2024 sustained a nasal bone fracture and a laceration to the nasal bridge. He had [address] Patient is here for stitch removal. One stitch was removed. No complications. Patient tolerated procedure well. No bleeding was noted. No signs of infection. Condition is stable patient instructed to use sunblock. (2) Nasal bones, closed fracture: Code(s): S02.2XXA - Fracture of nasal bones, initial encounter for closed fracture Category: Medical Plan: Condition is chronic and stable continue to monitor. Plan Plan Patient was informed and verbally consented to the use of an ambient scribe for clinic note documentation during this visit. 1. Upper Respiratory Infection Suspected Supportive care focusing on symptom relief through hydration and rest is planned, given the viral nature of the infection and current mild symptomatology. 2. Nasal Bone Fracture Monitoring for complications is advised given the fracture history, but no immediate invasive interventions are planned since the patient's breathing is not impaired. 3. Stitches Removal The removal of the last remaining stitch will be done cautiously, ensuring the healing site remains undisturbed to avoid any scab disruption. Discussion Notes I explained the current healing state of the nasal wound following the removal of stitches, advised careful management of the scab, and emphasized sun protection for the new skin to prevent damage. Regarding the suspected upper respiratory infection, I have recommended symptomatic care based on the mild nature and probability of a viral origin, likely transmitted within his family. Follow-up would be warranted if symptoms worsen or new ones develop. Patient Instructions: Patient Instructions - Do not disturb the scab; allow it to fall off naturally. - Protect the healing skin with sunscreen to prevent damage. - Stay hydrated and rest to alleviate respiratory symptoms. - Seek further consultation if symptoms worsen. Scribe Plan - Not visible on output: History of Present Illness The patient is a 39-year-old male presenting with the need for stitches removal and management of his nasal bone fracture. He sustained the nasal bone fracture from a ball strike that missed his elbow, leading to the current presentation for stitch removal and follow-up care. He reports only one stitch remaining, with associated scabbing that needs careful management to prevent reopening of the healing wound. The patient indicates some congestion likely due to a cold, consistent with a similar illness affecting his family. He confirms normal breathing, despite the congestion, with no extraordinary symptoms indicating any serious complications from the nasal fracture or respiratory infection. Social History - Family status: with a daughter - Family health: Family experiencing cold symptoms Review of Systems - Ears, Nose, Throat: Reports nasal congestion - Respiratory: Denies breathing difficulties Physical Exam Appearance: Alert. Oriented X3. No acute distress. Head: Normal external exam. Normocephalic. Atraumatic. Eyes: Pupils are equal, round, and reactive to light. Extraocular movements intact. Conjunctiva and sclera normal. Eyelids normal. Throat: Pharynx normal. Moist mucous membranes. Neck: Normal inspection. Neck supple. Full range of motion. . Cardiovascular: Normal heart rate and rhythm. Respiratory: No respiratory distress. Painless inspiration. Back: No costovertebral angle tenderness. Full range of motion noted. Skin: Skin warm and dry. Normal skin color. Normal skin turgor. Note: Patient has a scab With [address] from a previous injury, advised to leave it to heal completely. no fluctuance, purulent drainage, advancing erythema or signs of active infection at this time. Patient tolerated procedure well when removed 1 suture. Extremities: Extremities exhibit normal range of motion. Neuro: Oriented X 3. No motor deficit. No sensory deficit. Reflexes normal.
== END 2024-05-04 12:10 | disposition home or self-care (01) ==
LOC: HO.HMCH 11:49
PROVIDERS: PCP Physician Assistant; Visit Provider Physician Assistant Medical
DX: S02.2XXA Fracture of nasal bones, initial encounter for closed fracture (principal); Z48.02 Encounter for removal of sutures

== ENCOUNTER → 2024-05-04 11:48 | Outpatient (BNVA) | payer BC, SELFPAY | PROVIDERS: PCP Physician Assistant; Visit Provider Physician Assistant Medical | DX: Z48.02 Encounter for removal of sutures (principal); S02.2XXD Fracture of nasal bones, subsequent encounter for fracture with routine healing | CPT/HCPCS: 96127 ==

== ENCOUNTER 2024-05-04 15:39 | Outpatient (REF) | payer BC, SELFPAY ==
[2024-05-04 17:07] LABS: Hematocrit 41.7 % (42.0-52.0); Hemoglobin 14.7 g/dl (14.0-18.0); Mean Corpuscular HGB Conc 35.3 g/dl (31.0-36.0); Mean Corpuscular Hemoglobin 30.5 pg (27.0-33.0); Mean Corpuscular Volume 86.5 fL (80.0-98.0); Mean Platelet Volume 9.4 fL (9.4-12.4); Platelet Count 251 X10*3/uL (160-400); Red Blood Count 4.82 X10*6/uL (4.60-5.80); Red Cell Distribution Width 11.9 % (11.0-16.0); White Blood Count 8.4 X10*3/uL (4.8-10.8)
[2024-05-04 17:46] LABS: Alanine Aminotransferase 23 U/L (0-40); Albumin Level 4.3 g/dL (3.5-5.0); Alkaline Phosphatase 60 U/L (39-117); Anion Gap 13 (12-20); Aspartate Amino Transferase 21 U/L (5-37); Bilirubin Total 0.5 mg/dL (0.0-1.0); Blood Urea Nitrogen 14 mg/dL (9-16); Calcium 9.3 mg/dL (8.4-10.2); Carbon Dioxide 24 mmol/L (22-29); Chloride 108 mmol/L (96-108); Estimated Glomerular Filt Rate > 60; Glucose Fasting 82 mg/dL (60-99); Potassium 4.1 mmol/L (3.3-5.1); Sodium 141 mmol/L (135-145); Total Protein 7.7 g/dL (6.5-8.0)
== END 2024-05-04 15:40 | disposition home or self-care (01) ==
LOC: HO.LAB 15:39
PROVIDERS: PCP Physician Assistant; Visit Provider Physician Assistant
DX: Z13.1 Encounter for screening for diabetes mellitus (principal); Z13.0 Encounter for screening for diseases of the blood and blood-forming organs and certain disorders involving the immune mechanism
CPT/HCPCS: 36415; 80053; 85027

== ENCOUNTER 2024-06-02 09:31 | Outpatient (REF) | payer BC, SELFPAY ==
--- NOTE | ~2024-06-02 | XR_ITS ---
EXAMINATION: XR CHEST CLINICAL INFORMATION: R91.8 - Other nonspecific abnormal finding of lung field COMPARISON: 05/01/2024. TECHNIQUE: 2 views of the chest were obtained. FINDINGS: The cardiac, hilar, and mediastinal contours are normal. The lungs are clear bilaterally. Previously seen opacity abutting the right heart border has resolved. There is no pneumothorax or pleural effusion. There is no focal osseous or soft tissue abnormality. XR/XR chest 2V IMPRESSION: No active pulmonary disease. Resolution of previously seen right pulmonary opacity. Electronically signed by: Bill Rodriguez MD 06/02/2024 09:58 AM EDT
== END 2024-06-02 09:32 | disposition home or self-care (01) ==
LOC: HO.XRAY 09:31
PROVIDERS: PCP Physician Assistant; Visit Provider Physician Assistant
DX: R91.8 Other nonspecific abnormal finding of lung field (principal)
CPT/HCPCS: 71046

== ENCOUNTER → 2024-06-02 09:36 | Outpatient (BNV) | payer BC, SELFPAY | PROVIDERS: PCP Physician Assistant; Visit Provider Radiology Diagnostic Radiology | DX: R91.8 Other nonspecific abnormal finding of lung field (principal) | CPT/HCPCS: 71046 ==

== ENCOUNTER 2024-06-28 09:34 | Outpatient (AMB) | payer BC, SELFPAY ==
--- NOTE | 2024-06-28 09:39 | MHC.PC.OV ---
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 Concern--> reports he has been suffering with an eczema like skin condition for many years does mostly located over his upper torso and upper extremities. Has tried creams, selsun blue, topical salves without much relief. PLAN: Will supply patient with clotrimazole/triamcinolone cream to be used on the affected skin areas. Bilateral foot pain: He also reports he has had bilateral plantar foot pain for quite some time. Has tried changing his shoes to a wider set shoe though has not been effective. He has gotten bilateral foot x-rays without any significant bony abnormalities. Patient is awaiting appointment with Podiatry. He is hopeful there is some kind of treatment to help him reduce his foot pain particularly at the base of his great toe and arches of his feet GERD: His struggle with persistent GERD, exacerbated by diet, requires revised management beyond temporary [id number] solutions. Vaccines: Patient is up-to-date with COVID vaccine, needs new tetanus vaccine though declines at this time [facility] Medical History Nasal bones, closed fracture Visit for suture removal GERD (gastroesophageal reflux disease) Family History (Updated 06/28/24 @ 10:04 by Heber Crockett PA-C) Mother DMII (diabetes mellitus, type 2) HTN (hypertension) Father Liver cirrhosis Social History Housing: House Alcohol intake: current Alcohol intake frequency: holidays/special occasions only e-Cigarette/Vaping Use: Never Used Substance Use Type: Marijuana Current occupational status: employed Current occupation: [employer] - [employer] Cognitive needs: No Hearing needs: No Vision needs: No Questionnaire Thrive Questionnaire Date Thrive assessed: 05/04/24 I am a: Patient What is your living situation today?: I have a steady place to live Within the past 12 months, did the food you bought not last and you didn't have the money to get more?: Often true Within the past 12 months, did you worry whether your food would run out before you got money to buy more?: Often true Do you have trouble paying for medicines?: No Do you have trouble getting transportation to medical appointments?: No Do you have trouble paying your heating and electricity bill?: Yes Do you have trouble taking care of your child, family member or friend?: No Do you have trouble with day-to-day activities such as bathing, preparing meals, shopping, managing finances, etc.?: No Are you currently unemployed and looking for a job?: No Are you interested in more education?: Yes Please select the resources that you would like help with: Childcare Currently or been in a relationship where the following occur: No concerns reported THRIVE Score: 3 MICHAEL-7 AMB Questionnaire MICHAEL-7 Date MICHAEL - 7 assessed: 05/04/24 Source: Developed by Drs. Ty Fournier, Petra Díaz, Inocencio Harmon and colleagues, with an educational rebeka from [employer] Review of Systems Const Denies body aches, Denies chills, Denies excessive sweating, Denies fatigue, Denies fever(s) and Denies headache(s) Eyes Denies blurry vision ENT Denies dysphagia, Denies vertigo, Denies dizziness, Denies headache(s), Denies hearing loss and Denies tinnitus Card Denies chest pain, Denies chest pain with activity, Denies syncope, Denies irregular heart rhythm and Denies dyspnea Resp Denies chest congestion, Denies cough, Denies hemoptysis, Denies dyspnea and Denies wheezing GI Denies abdominal pain, Denies melena, Denies hematochezia, Denies coffee ground emesis, Denies dysphagia, Denies diarrhea, Denies nausea and Denies vomiting Denies difficulty urinating, Denies dysuria, Denies urinary frequency, Denies urinary hesitancy and Denies urinary urgency Musc Denies arthralgias, Denies limited range of motion, Denies muscle cramps and Denies muscle weakness Skin/Breast Denies rash and Denies skin ulcer Neuro Denies Abnormal speech present, Denies confusion, Denies vertigo, Denies dizziness, Denies syncope, Denies headache(s), Denies memory loss and Denies seizure-like activity Psych Denies anxiety, Denies confusion, Denies depression, Denies memory loss, Denies panic attacks and Denies paranoia Endo Denies excessive sweating, Denies fatigue, Denies flushing, Denies polydipsia and Denies polyuria Aller/Immun Denies wheezing Physical exam (Primary Care) Vital Signs: Last Vital Signs Temp 97.1 F 06/28/24 09:47 Pulse 70 06/28/24 09:47 BP 114/80 06/28/24 09:47 Pulse Ox 98 06/28/24 09:47 Oxygen Delivery Method Room Air 06/28/24 09:47 BMI result Body Mass Index 28.4 Tobacco/Smoking Status: Tobacco use Status Tobacco use date assessed 05/04/24 06/28/24 09:39 e-Cigarette/Vaping Use Never Used 06/28/24 09:39 Thrive Assessment: Date of Thrive Assessment Date Thrive assessed 05/04/24 06/28/24 09:39 Currently or been in a relationship where the following occur: No concerns reported Const General: cooperative, comfortable, no acute distress, alert and awake; No confusion Orientation/consciousness: oriented to person, oriented to place, patient oriented x3 and No confusion HENMT Head: Yes normocephalic Ears: external ears normal and TM's normal bilaterally Face and sinus: No sinus tenderness Mouth: Normal oral and palatal mucosa present and tongue normal Teeth and gingiva: dentition normal and gingiva normal Throat: Yes posterior oropharynx normal, Yes tonsils normal and Yes uvula midline Eyes Conjunctivae: conjunctivae normal Sclerae: sclerae normal Pupils: Equal, round and reactive pupils present EOM: EOMs intact bilaterally Direct Ophthalmoscopy: No no photophobia Neck Neck: Yes no lymphadenopathy, No tender and Yes no JVD Thyroid: Thyroid normal Carotids: no bruits Chest Chest palpation & inspection: no tenderness Resp Effort & Inspection: normal respiratory effort, no audible wheezes, not labored and no stridor Auscultation: no crackles, no rales, no rhonchi and no wheezes Cardio Jugular venous distension: no JVD Rate: regular rate, not bradycardic and not tachycardic Rhythm: regular rhythm Bruits: no carotid bruits Peripheral pulses: Peripheral pulses 2+ throughout GI Inspection: Yes normal to inspection, No abdominal wall ecchymosis and No visible herniation Palpation (GI): Soft to palpation, nontender, no guarding, not rigid and No hepatosplenomegaly present Auscultation: normoactive bowel sounds General: Yes no CVA tenderness Back/Spine/Pelvis Back: no CVA tenderness and No back tenderness Cervical Spine: cervical ROM normal Thoracic/Lumbar Spine: thoracic and lumbar spine normal to inspection, straight leg raise negative bilaterally, No thoraco-lumbar ROM limited and No lumbar spinal tenderness Skin Lesions: no lesions Rashes: no rashes Wounds: no wounds Neuro General: oriented to person, oriented to place, patient oriented x3, CN's II-XI intact bilaterally and No confusion Cranial nerves: Yes Equal, round and reactive pupils present and Yes Normal accommodation reflex present Cognition (Neuro): normal cognition Speech: No Abnormal speech present Gait exam (Neuro): Normal gait present Motor exam (neuro): 5/5 motor strength present throughout Extrem Right upper extremity: full ROM; no cyanosis Left upper extremity: full ROM; no cyanosis Right lower extremity: no edema Left lower extremity: no edema Psych Appearance: grossly normal Mental Status: mental status grossly normal Affect: normal affect Attitude: cooperative Thought process: Normal thought process present Coding Level of Care Code Est Pt Prev Care 18-39y(59471) Diagnoses Annual physical exam Z00.00 Flexural eczema L20.82 Eczema type: flexural Closed fracture of nasal bone with delayed healing, subsequent encounter S02.2XXG Encounter type: subsequent encounter Fracture healing: with delayed healing Arch pain of left foot M79.672 Assessment & Plan Assessment & Plan (1) Annual physical exam: Code(s): Z00.00 - Encounter for general adult medical examination without abnormal findings Category: Medical Plan: As per HPI (2) Eczema: Code(s): L30.9 - Dermatitis, unspecified Category: Medical Qualifiers: Eczema type: flexural Qualified Code(s): L20.82 - Flexural eczema Plan: Will supply patient with topical treatment for possible eczema (3) Nasal bones, closed fracture: Code(s): S02.2XXA - Fracture of nasal bones, initial encounter for closed fracture Category: Medical Qualifiers: Encounter type: subsequent encounter Fracture healing: with delayed healing Qualified Code(s): S02.2XXG - Fracture of nasal bones, subsequent encounter for fracture with delayed healing Plan: Broke his nasal bone playing basketball, does not use any pain in his nose or difficulty breathing. (4) Arch pain of left foot: Code(s): M79.672 - Pain in left foot Category: Medical Plan: Awaiting appointment with Podiatry in hopes he is able to get treatment for his bilateral feet pain that seems chronic. Has tried different shoe types though have not been efficient on reducing his pain for any long period of time. He has had x-rays of his feet which did not show any bony abnormalities. Orders: Referrals Podiatry Referral M79.672 - Pain in left foot Medications: New clotrimazole-betamethasone 1-0.05 % 1 appl topical BID 30 days 45 grams 1RF L20.82 - Flexural eczema
[2024-06-28 09:47] VITALS: BP 114/80; PULSE 70; TEMP 36.2; O2SAT 98; BMI 28.4
== END 2024-06-28 10:24 | disposition home or self-care (01) ==
LOC: HO.HMCH 09:35
PROVIDERS: PCP Physician Assistant; Visit Provider Physician Assistant
DX: Z00.00 Encounter for general adult medical examination without abnormal findings (principal); L20.82 Flexural eczema; S02.2XXG Fracture of nasal bones, subsequent encounter for fracture with delayed healing; M79.672 Pain in left foot

== ENCOUNTER → 2024-06-28 09:34 | Outpatient (BNVA) | payer BC, SELFPAY | PROVIDERS: PCP Physician Assistant; Visit Provider Physician Assistant ==

== ENCOUNTER 2025-01-09 14:36 | Outpatient (AMB) | payer OTHER, SELFPAY ==
--- OUTSIDE RECORDS SUMMARY | 2024-07-20 04:30 | XMS_ITS ---
Author Organization [facility] Address [address] [place] [address] [place] [address] Care Team Providers Care Log Cooker Name Role Phone Heber Crockett Primary Care Provider Unavailab Chuyita Morfin Unavailable [phone] Encounters Encounter Location Date Provider Diagnosis [address] [id number] 07/20/2024 Chuyita Moreno Plan Of Treatment No Information Progress Notes * Amari MONTOYADOB:1985 (39 yo M)Acc No.[id number]:07/20/2024 Progress Notes Patient: Amari ROMANO Provider: Pa Moreno DPM :1985 A ge:39 Y S ex:Male Date:07/20/2024 Address:[address] [place], [place] [id number] Pcp:Heber Crockett Subjective: * Chief Complaints: * * Medical History: Objective: * Vitals: Assessment: Plan: * Treatment: * Images: * The named appointment provid er may or may not be the originator of this progress note, and it is not deemed complete until electronically signed by the appointment provider. Sign off status: Pending * Provider: Pa Moreno DPM Date: 0 07/20/2024 Generated for Sandeep dumont/Harriet/Libbyitting on: 03/12/2024 12:25 PM EST
--- OUTSIDE RECORDS SUMMARY | 2024-09-20 04:30 | XMS_ITS ---
Author Organization [facility] Address [address] [place] [id number] Care Team Providers Care Bookbinder Chief Name Role Phone Heber Crockett Primary Care Provider Unavailab Chuyita Morfin Unavailable [phone] Encounters Encounter Location Date Provider Diagnosis [facility] [address] [place] [address] 09/20/2024 Chuyita Moreno Plan Of Treatment No Information Progress Notes * Amari MONTOYADOB:1985 (39 yo M)Acc No.[id number]:09/20/2024 Progress Notes Patient: Amari ROMANO Provider: Pa Moreno DPM :1985 A ge:39 Y S ex:Male Date:09/20/2024 Address:[address] [place], [place] [id number] Pcp:Heber Crockett Subjective: * Chief Complaints: * * Medical History: Objective: * Vitals: Assessment: Plan: * Treatment: * Images: * The named appointment provid er may or may not be the originator of this progress note, and it is not deemed complete until electronically signed by the appointment provider. Sign off status: Pending * Provider: Pa Moreno DPM Date: 0 09/20/2024 Generated for Sandeep dumont/Harriet/Limasmitting on: 03/12/2024 12:25 PM EST
--- NOTE | 2025-01-09 14:40 | A.OFFPC_ITS ---
Vital Signs 3 01/09/25 14:43 Height 5 ft 8 in Weight 184 lb BMI 28.0 BP 110/74 Blood Pressure Location Lt brachial Position Sitting Pulse 91 Pulse Source Pulse Oximeter Temp 97.1 F Temp Source Temporal Artery Scan Pulse Oximetry (%) 96 Oxygen Delivery Method Room Air Intake Visit Reasons: head ingrowth Intake Note: Patient is here to follow up on Growth on head and right shoulder pain. 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 CHRONIC INTERMITTENT RIGHT SHOULDER PAIN: The patient reports ongoing right shoulder pain, which improved after his last visit but flared up again during the summer and is now just okay. He plays softball and notes weakness and an inability to throw with full strength. The patient believes the issue may be connected to a fall from a water cycle over two years ago, after which an urgent care X-ray was normal. An X-ray of the shoulder last year was also normal, suggesting a soft tissue injury such as a rotator cuff issue. He previously attempted one day of physical therapy but could not continue due to insurance requirements. SCALP VERRUCA: He has new lesions on his scalp that he first noticed around the time of his last visit but did not mention. One lesion has grown larger, and a second one has appeared. BILATERAL FOOT PAIN: The patient experiences bilateral foot pain, primarily in the great toe area, which is worse on the right side. The pain is exacerbated by physical activity, such as playing softball in cleats during the summer. He is flat-footed and suspects he might have arthritis, although foot X-rays from this year were negative for arthritis or bunions. A prior referral to a expert medical writer was not pursued due to insurance coverage issues. RASH : He has developed an itchy, urticaria-like rash on his back over the last 3-4 days. He also reports seasonal xerosis and has a history of eczema, which he believes is aggravated by dry indoor heat during the winter. Regarding his history of gastroesophageal reflux, the patient reports that after taking lansoprazole for a short period, his symptoms resolved completely and have not returned in the last six months, despite an unrestricted diet. [facility] Medical History (Updated 01/10/25 @ 07:42 by Heber Crockett PA-C) Nasal bones, closed fracture Visit for suture removal GERD (gastroesophageal reflux disease) Surgical History (Updated 01/09/25 @ 14:51 by RIA Hannah) History of tooth extraction Family History (Updated 01/09/25 @ 14:41 by RIA Hannah) Mother DMII (diabetes mellitus, type 2) HTN (hypertension) Father Liver cirrhosis Social History Housing: House Alcohol intake: current Alcohol intake frequency: holidays/special occasions only Patient Tobacco Use Status: Never used Tobacco e-Cigarette/Vaping Use: Never Used Second Hand Smoke Exposure: No Substance Use Type: Marijuana service: No Current occupational status: employed Current occupation: [employer] - [employer] Cognitive needs: No Hearing needs: No Vision needs: No Questionnaire Thrive Questionnaire Date Thrive assessed: 04/25/24 I am a: Patient What is your living situation today?: I have a steady place to live Within the past 12 months, did the food you bought not last and you didn't have the money to get more?: Often true Within the past 12 months, did you worry whether your food would run out before you got money to buy more?: Often true Do you have trouble paying for medicines?: No Do you have trouble getting transportation to medical appointments?: No Do you have trouble paying your heating and electricity bill?: Yes Do you have trouble taking care of your child, family member or friend?: No Do you have trouble with day-to-day activities such as bathing, preparing meals, shopping, managing finances, etc.?: No Are you currently unemployed and looking for a job?: No Are you interested in more education?: Yes Please select the resources that you would like help with: Childcare Currently or been in a relationship where the following occur: No concerns reported THRIVE Score: 3 MICHAEL-7 AMB Questionnaire MICHAEL-7 Date MICHAEL - 7 assessed: 05/04/24 Source: Developed by Drs. Ty Fournier, Petra Díaz, Inocencio Harmon and colleagues, with an educational rebeka from [employer]. Review of Systems Const Denies headache(s) Eyes Denies loss of vision ENT Denies vertigo, Denies dizziness, Denies headache(s) and Denies sore throat Card Denies chest pain, Denies leg edema and Denies lightheadedness Resp Denies cough, Denies hemoptysis and Denies wheezing GI Denies abdominal pain, Denies melena, Denies constipation, Denies diarrhea and Denies vomiting Denies dysuria, Denies urinary frequency and Denies urinary urgency Musc Denies arthralgias, Denies joint swelling, Denies numbness and Denies tingling Neuro Denies Abnormal speech present, Denies behavioral changes, Denies vertigo, Denies dizziness, Denies headache(s), Denies loss of vision, Denies memory loss, Denies numbness and Denies tingling Psych Denies anxiety, Denies behavioral changes, Denies depression, Denies memory loss and Denies panic attacks James/Lymph Denies easy bleeding and Denies easy bruising Aller/Immun Denies wheezing Physical exam (Primary Care) Vital Signs: Last Vital Signs Temp 97.1 F 01/09/25 14:43 Pulse 91 01/09/25 14:43 BP 110/74 01/09/25 14:43 Pulse Ox 96 01/09/25 14:43 Oxygen Delivery Method Room Air 01/09/25 14:43 BMI result Body Mass Index 28.0 Tobacco/Smoking Status: Tobacco use Status Tobacco use date assessed 01/09/25 01/09/25 14:53 Patient Tobacco Use Status Never used Tobacco 01/09/25 14:53 e-Cigarette/Vaping Use Never Used 01/09/25 14:41 Thrive Assessment: Date of Thrive Assessment Date Thrive assessed 04/25/24 01/09/25 14:41 Currently or been in a relationship where the following occur: No concerns reported Const General: healthy appearing, no acute distress, alert and awake Nutritional Appearance: well nourished Orientation/consciousness: oriented to person, oriented to place and oriented to time [facility] Head images: 2 1. VERRUCA LIKE LESION OVER MID SCALP Ears: TM's normal bilaterally General nose exam: Normal nasal mucous membranes and turbinates present Eyes Conjunctivae: conjunctivae normal Sclerae: sclerae normal Pupils: Equal, round and reactive pupils present Neck Neck: Yes no lymphadenopathy and Yes no JVD Thyroid: Thyroid normal Carotids: no bruits Resp Effort & Inspection: normal respiratory effort and not tachypneic Auscultation: no crackles, no rales, no rhonchi and no wheezes Cardio Rate: regular rate Rhythm: regular rhythm Heart sounds: no murmurs and normal S1 and S2 GI Palpation (GI): Soft to palpation, nontender, no hepatomegaly and no splenomegaly Auscultation: normal bowel sounds Skin General skin exam: no rashes or lesions noted and dry skin Neuro General: oriented to person, oriented to place and oriented to time Cranial nerves: Yes Equal, round and reactive pupils present Speech: No Abnormal speech present Gait exam (Neuro): Normal gait present Motor exam (neuro): no tremor noted Extrem Other: RIGHT SHOULDER: FULL RANGE OF MOTION, NEGATIVE EMPTY CAN TEST, NEGATIVE PETTIT TEST, NO NOTABLE MUSCULAR ATROPHY Right upper extremity: full ROM Left upper extremity: full ROM Right lower extremity: full ROM; no edema Left lower extremity: full ROM; no edema Psych Mental Status: mental status grossly normal Speech and movement: Normal speech and movement present Affect: normal affect Attitude: cooperative Thought process: Normal thought process present Coding Level of Care Code Est Pt Level 4 (06016) Diagnoses Tendinopathy of right shoulder M67.911 Bilateral foot pain M79.671; M79.672 Wart of scalp B07.9 Flexural eczema L20.82 Eczema type: flexural Assessment & Plan Assessment & Plan (1) Tendinopathy of right shoulder: Code(s): M67.911 - Unspecified disorder of synovium and tendon, right shoulder Category: Medical Plan: For the right shoulder pain, he continues to have intermittent weakness in the right shoulder evidenced by inability to throw a softball as hard as he usually does.. The next step is a trial of physical therapy, and a referral will be placed. X-ray of the shoulder did not show any AC arthritis or notable calcified tendinitis. While an MRI would be the best diagnostic tool to assess the soft tissues, it is difficult to get approved by insurance without first attempting conservative treatment. A referral to orthopedics is also a consideration, although they would likely require an MRI for evaluation. (2) Bilateral foot pain: Code(s): M79.671 - Pain in right foot; M79.672 - Pain in left foot Category: Medical Plan: For the bilateral foot pain, a referral will be placed to a expert medical writer within the [facility] network to ensure insurance coverage. The expert medical writer can provide a specialized evaluation and may recommend treatments such as shoe inserts. (3) Wart of scalp: Code(s): B07.9 - Viral wart, unspecified Category: Medical Plan: The scalp lesions were identified as warts, and a referral will be made to general surgery for removal. (4) Eczema: Code(s): L30.9 - Dermatitis, unspecified Category: Medical Qualifiers: Eczema type: flexural Qualified Code(s): L20.82 - Flexural eczema Plan: For the patient's dermatitis and dry skin, a refill for his skin cream will be sent. Education was provided advising the use of lukewarm water for showers and switching from liquid pump soaps to more gentle bar soaps (e.g., Dove) or cleansers in tubes/jars (e.g., CeraVe, Aveeno) to reduce skin dryness. Orders: Orders 2 Comprehensive [place]. Panel Fast 01/09/25 Z13.1 - Encounter for screening for diabetes mellitus PT Evaluation and Treatment 01/09/25 M67.911 - Unspecified disorder of synovium and tendon, right shoulder Complete Blood Count no Diff 01/09/25 Z13.1 - Encounter for screening for diabetes mellitus Referrals 2 Podiatry Referral M79.671 - Pain in right foot, M79.672 - Pain in left foot General Surgery Referral B07.9 - Viral wart, unspecified Medications: Refilled 2 clotrimazole-betamethasone 1-0.05 % 1 appl topical BID 45 grams 1RF 30 days L20.82 - Flexural eczema
[2025-01-09 14:43] VITALS: BP 110/74; PULSE 91; TEMP 36.2; O2SAT 96; BMI 28.0
--- OUTSIDE RECORDS SUMMARY | 2025-01-10 12:25 | XMS_ITS | Patient Health Record ---
Author Organization [facility] Address [address] [place] [address] Care Team Providers Care Municipal Engineer Name Role Phone Heber Crocktet Primary Care Provider Unavailab Chuyita Morfin Unavailable [phone] Reason For Referral No Information Encounters Encounter Location Date Provider Diagnosis [facility] [place] [address] 07/13/2024 Chuyita Moreno [facility] [address] [place] [address] 09/13/2024 Chuyita Moreno Plan Of Treatment No Information
== END 2025-01-09 15:20 | disposition home or self-care (01) ==
LOC: HO.HMCH 14:37
PROVIDERS: PCP Physician Assistant; Visit Provider Physician Assistant
DX: M79.671 Pain in right foot (principal); M67.911 Unspecified disorder of synovium and tendon, right shoulder; M79.672 Pain in left foot; B07.9 Viral wart, unspecified; L20.82 Flexural eczema

== ENCOUNTER → 2025-01-09 14:36 | Outpatient (BNVA) | payer OTHER, SELFPAY | PROVIDERS: PCP Physician Assistant; Visit Provider Physician Assistant | DX: M79.671 Pain in right foot (principal); M79.672 Pain in left foot; M67.911 Unspecified disorder of synovium and tendon, right shoulder; L20.82 Flexural eczema; B07.9 Viral wart, unspecified | CPT/HCPCS: 99212 ==

== ENCOUNTER 2025-01-31 08:54 | Outpatient (AMB) | payer OTHER, SELFPAY ==
[2025-01-31 09:08] VITALS: BMI 28.2
--- NOTE | 2025-01-31 09:08 | MHC.OFFVIS ---
Vital Signs 01/31/25 09:08 Height 5 ft 7 in Weight 180 lb BMI 28.2 Intake Visit Reasons: Feet Pain Intake Note: Amari is a 39 year old male who presents to the office today as a new patient visit for feet pain referred by his PCP Tobin Crockett. Pt states the pain is located on bilateral great toes and he has had the pain for almost 2 years. He mentions the pain is worst during the spring summer when he is doing outdoor activities. Patient finds that his right foot pain is worst then the left. He has not tried any OTC medication to help with his pain. Bilateral X-ray is all set in patients chart. Allergies No Known Allergies Allergy (Verified 01/31/25 09:11) HPI Comments Details: The patient is a 40 year old male with a PMH as seen below presenting with B/L hallux pain. He reports stabbing pain in his right hallux, worse than left, which has been present for approximately two years or longer. The pain is intermittent but can be very severe at times. Symptoms are exacerbated by wearing tighter shoes, such as cleats, and by increased activity, particularly during the spring and summer months. He recently irritated the area by stepping on his foot incorrectly. He has not taken any medication for the pain. He also notes that his left hallux has started to become symptomatic, which may be due to compensatory weightbearing. He denies any sensation of cracking or popping in the toe joints. He denies any other pedal concerns. [facility] Medical History (Updated 01/31/25 @ 09:22 by Rebecca Davis DPM) Bilateral bunions Nasal bones, closed fracture Visit for suture removal GERD (gastroesophageal reflux disease) Surgical History (Updated 01/09/25 @ 14:51 by RIA Hannah) History of tooth extraction Family History (Updated 01/09/25 @ 14:41 by RIA Hannah) Mother DMII (diabetes mellitus, type 2) HTN (hypertension) Father Liver cirrhosis Social History Housing: House Alcohol intake: current Alcohol intake frequency: holidays/special occasions only Patient Tobacco Use Status: Never used Tobacco e-Cigarette/Vaping Use: Never Used Second Hand Smoke Exposure: No Substance Use Type: Marijuana service: No Current occupational status: employed Current occupation: [employer] - [employer] Cognitive needs: No Hearing needs: No Vision needs: No Review of Systems Const Details: - Musculoskeletal: Reports intermittent, stabbing pain in the right hallux, which can be severe. Reports the left hallux is also starting to become painful. All systems reviewed & are unremarkable except as noted in HPI and below Physical Exam Vital Signs: BMI result Body Mass Index 28.2 Extrem Other: Bilateral lower extremity focused physical exam: Derm: No open lesions abrasions or wounds noted. Skin supple and turgor within normal limits. Toenails within normal limits. No hyperkeratotic or macerated areas noted. No discoloration noted. No clinical signs of infection noted. Vascular: DP/PT pulses palpable. Capillary refill time less than 3 seconds. Temperature gradient warm to warm. Pedal hair present. Mild edema noted to the medial prominences of the 1st MPJ bilaterally. Neuro: Protective sensation is grossly intact. MSK: Pain on palpation to the 1st MPJ bilaterally. Bony medial prominence of the 1st MPJ noted bilaterally. Tracking hallux valgus deformities noted. No crepitus or fluctuance. Mildly antalgic gait unassisted noted. No other gross abnormalities noted. Results Reviewed Results Reviewed: Podiatry read of bilateral foot x-rays (05/01/2024): HAV noted with right foot 1st IM angle noted to be approximately 15.02 degrees and left foot 1st IM angle noted to be approximately 15.04 degrees. Mild hammertoe deformities noted to toes 2 through 4. Left calcaneal bone island. Bilateral foot x-rays (05/01/2024): Left - No fracture, dislocation, or suspicious bone lesion. Normal bone mineralization. Bone island is present within the calcaneus. Normal alignment. Joint spaces are preserved. No significant arthropathy. Normal plantar arch. Soft tissues appear normal. IMPRESSION: Normal left foot. Right - No fracture, dislocation, or suspicious bone lesion. Normal bone mineralization. Normal alignment. Joint spaces are preserved. No significant arthropathy. Normal plantar arch. Soft tissues appear normal. IMPRESSION: Normal right foot. Assessment & Plan Assessment & Plan (1) Bilateral foot pain: Code(s): M79.671 - Pain in right foot; M79.672 - Pain in left foot Category: Medical (2) Bilateral bunions: Code(s): M21.611 - Bunion of right foot; M21.612 - Bunion of left foot Category: Medical Plan Patient was informed and verbally consented to the use of an ambient scribe for clinic note documentation during this visit. I informed the patient that his bilateral hallux pain is associated with a bunion, a finding which was supported by his prior X-rays. We discussed a conservative treatment approach to start, which includes using cushioned bunion sleeves, wearing wider shoes, and applying topical Voltaren gel for pain and inflammation. Patient opted out of oral medication. I explained that while surgery is the only definitive way to correct a bunion, I do not believe it is necessary at this time since his pain is not constant. I detailed the type of surgery that would be appropriate for his specific deformity based on his x-rays. The recovery process was also explained as well. The patient agreed to the plan of trying conservative measures first. He will follow up in three months to reassess his symptoms. - A prescription for topical Voltaren gel was provided for as-needed use for pain. - The patient was advised on conservative management for his bunion, including the use of bunion sleeves for cushioning. - It was recommended to wear wider shoes or stretch the toe box of his current shoes to reduce pressure. - Surgical correction was discussed as the only definitive treatment, but it is not recommended at this time as the pain is not constant or severe. - If symptoms persist or worsen despite conservative measures, surgical intervention with an osteotomy and screw fixation would be considered. - Advised patient to wear supportive shoe gear and avoid barefoot walking. RTC in 3 months. Medications: New diclofenac sodium 1% (Voltaren Arthritis Pain) apply to single knee, ankle, foot; for foot includes sole/toes/top of foot 4 grams topical QID 50 grams 1RF M21.611 - Bunion of right foot, M21.612 - Bunion of left foot, M79.671 - Pain in right foot, M79.672 - Pain in left foot Coding Level of Care Code New Pt Level 4 (08818) Diagnoses Bilateral foot pain M79.671; M79.672 Bilateral bunions M21.611; M21.612 Time Spent (min) 49
== END 2025-01-31 09:25 | disposition home or self-care (01) ==
LOC: HO.HPODS 08:55
PROVIDERS: PCP Physician Assistant; Visit Provider Student in an Organized Health Care Education/Training Program
DX: M79.671 Pain in right foot (principal); M79.672 Pain in left foot; M21.611 Bunion of right foot; M21.612 Bunion of left foot
CPT/HCPCS: 99204

== ENCOUNTER → 2025-01-31 08:54 | Outpatient (BNVA) | payer OTHER, SELFPAY | PROVIDERS: PCP Physician Assistant; Visit Provider Student in an Organized Health Care Education/Training Program | DX: M21.611 Bunion of right foot (principal); M21.612 Bunion of left foot; M79.671 Pain in right foot; M79.672 Pain in left foot | CPT/HCPCS: 99202 ==